=== PATIENT | male | born 1945 | race Caucasian/White ===

== ENCOUNTER 2021-08-13 08:15 | Inpatient (IN) | payer MEDICARE, SELFPAY ==
[2021-08-13] VITALS (20 sets, daily range): BP systolic 82–132; BP diastolic 39–92; PULSE 66–93; RESP 13–26; TEMP 36.6–37.1; O2SAT 87–96; BMI 27.0
--- NOTE | ~2021-08-13 | XR_ITS ---
XR hand RT min 3V DATE: 08/13/2021 09:04 INDICATION: Right hand and fourth finger injury after fall TECHNIQUE: 3 views COMPARISON: None FINDINGS: There is posteromedial dislocation at the proximal interphalangeal joint of the fourth digi t. No other fracture or dislocation is evident. There is osteophytic change at the triscaphe and first carpometacarpal and first through third metaca rpophalangeal and multiple interphalangeal joints. IMPRESSION: Posteromedial dislocation at proximal interphalangeal joint of fourth digit Polyarticular osteoarthritis Reviewed, dictated and finalized at location A. IMPRESSION: Posteromedial dislocation at proximal interphalangeal joint of four th digit Polyarticular osteoarthritis
--- NOTE | ~2021-08-13 | CT_ITS ---
EXAMINATION: CT brain wo con DATE: 08/13/2021 09:08 INDICATION: Syncope. Fall. TECHNIQUE: Computed tomography (CT) of the head was performed without intravenous contrast. The mA wa s adjusted according to patient size. Iterative reconstruction technique was employed. Exam dose: 68 1.00 mGy-cm total exam DLP. COMPARISON: None FINDINGS: No intracranial mass lesion or hemorrhage or cerebrovascular accident. No midline shift or mass effect. Bilateral carotid siphon internal carotid artery calcifications. There is nonspecific diminished atte nuation of the cerebral white matter, likely due to chronic small vessel ischemic changes. No subdural or epidural hematoma is detected. 6 mm or polyp or mucous retention cyst of the left maxillary sinus. Patchy soft tissue thickening of the ethmoid air cells. Moderate opacification of the maxillary sinuses. Bilateral nasal antral window s. Mild mucoperiosteal thickening of the left sphenoid sinus and frontal sinuses. The mastoid air cells are normally developed and aerated. No fracture or bone destruction of the cranial vault.. IMPRESSION: Cerebral atherosclerosis and chronic small vessel ischemic changes of the cerebral white matter No acute intracranial finding Reviewed, dictated and finalized at Location A. Reviewed, dictated and finalized at location A.
--- NOTE | ~2021-08-13 | XR_ITS ---
XR chest 2V DATE: 08/13/2021 09:03 INDICATION: Syncope TECHNIQUE: PA and lateral views COMPARISON: None FINDINGS: Moderate hyperinflation. No pulmonary infiltrate or consolidation, pleural effusion or pulm onary vascular congestion or pneumothorax. Normal heart size. Mild aortic unfolding. Osteopenia. IMPRESSION: No active cardiopulmonary disease Reviewed, dictated and finalized at location A.
--- NOTE | ~2021-08-13 | US_ITS ---
US renal BI DATE: 08/14/2021 08:51 INDICATION: Acute renal insufficiency. Prostate cancer. TECHNIQUE: Real-time imaging of kidneys and urinary bladder COMPARISON: 11/06/2014 CT abdomen pelvis without and with IV contrast material FINDINGS: The right kidney measures approximately 10.9 cm length, left kidney 11.8 cm. Renal parenchy mal echogenicity appears within normal limits. No renal mass lesion or hydronephrosis is detected. Prostate enlargement. The urinary bladder is unremarkable. IMPRESSION: No renal mass lesion or hydronephrosis Prostate enlargement Reviewed, dictated and finalized at Location [facility]. Reviewed, dictated and finalized at location A.
--- NOTE | ~2021-08-13 | XR_ITS ---
XR hand RT min 3V DATE: 08/13/2021 09:51 INDICATION: Fourth finger dislocation; post reduction examination TECHNIQUE: 3 views COMPARISON: 08/13/2021 right hand FINDINGS: There is reduction of the posterior medial dislocation of the proximal interphalangeal join t of the fourth digit. No associated fracture. Polyarticular osteoarthritis. IMPRESSION: Reduction of dislocation at proximal interphalangeal joint of fourth digit Reviewed, dictated and finalized at location A. IMPRESSION: Reduction of dislocation at proximal interphalangeal joint of fourt h digit
--- NOTE | 2021-08-13 08:29 | ECG_ITS ---
Measurements Intervals [place] Rate: 80 P: 17 KS: 160 QRS: -6 QRSD: 104 T: 29 QT: 365 QTc: 423 Interpretive Statements SINUS RHYTHM DELAYED PRECORDIAL R/S TRANSITION BORDERLINE T WAVE ABNORMALITY- INFERIOR LEADS BORDERLINE ECG Electronically Signed On 08-13-2021 15:02:26 CDT by Jose Quarles D.O.
--- NOTE | 2021-08-13 08:44 | ED.SYNCOPE ---
HPI - Syncope General Chief Complaint: Syncope Stated Complaint: dislocated finger Time Seen by Provider: 08/13/21 08:25 History of Present Illness HPI narrative: pt here passed out last night 35 then again today injured right ring finger on first loc no [place]/cp/sob/nv//d/f/uri/urine chagnes/abd pain/other neuro chagnes and no change in bp meds no heat exposure/sick contacts says diarrhea this am afte eating watermelon-h/o this but not prior. pt says no head neck or back or other injury no [place]/vision changes Related Data Home Medications Medication Instructions Recorded Confirmed triamcinolone acetonide 55 mcg 1 spray NASAL . b.i.d. ml 12/10/19 02/08/21 nasal spray aerosol sulfamethoxazole-trimethoprim 1 tablet PO Q12H 08/13/21 [Bactrim DS] tamsulosin [Flomax] 0.4 mg PO DAILY 08/13/21 Allergies Allergy/AdvReac Type Severity Reaction Status Date / Time No Known Allergies Allergy Mild Verified 08/13/21 08:37 Review of Systems Review of Systems: CONSTITUTIONAL: Denies fever, chills, or sweats. EYES: Denies visual changes, redness, or discharge. ENT: Denies rhinorrhea, congestion, sore throat, or otalgia. CARDIOVASCULAR: Denies chest pain, palpitations, or edema. RESPIRATORY: Denies cough or dyspnea. GASTROINTESTINAL: Denies abdominal pain, nausea, vomiting, has had diarreha just today GENITOURINARY: Denies dysuria or hematuria. SKIN: Denies rash or itching. MUSCULOSKELETAL: Denies back pain, joint pain, or myalgia. has right ring finger injury NEUROLOGIC: Denies headache, numbness, or weakness. passed out 2x PSYCHIATRIC: Denies anxiety or depression. [facility] Past Medical History Medical History (Updated 08/13/21 @ 09:47 by Demetrice Ardon MD) Abnormal fasting glucose BMI 27.0-27.9,adult BMI 28.0-28.9,adult Body mass index (bmi) 25.0-25.9, adult (12/17/18) Elevated PSA Encounter for hepatitis C screening test for low risk patient Loss, sense of, smell Microscopic hematuria Tinnitus Viral URI Family History Family History (Updated 11/28/18 @ 15:59 by DOCTOR UNKNOWN) Grandparent Family history of tuberculosis, Onset Age: 55 Family history of malignant neoplasm, Onset Age: 59 Family history of emphysema, Onset Age: 60 Father Malignant neoplasm of prostate, Onset Age: 56 Social History Social History Years smoked: 2 Smoking status: Never smoker Smoking end date: 04/02/10 Alcohol intake: current Alcohol use details: beer occasionally Exam Narrative: APPEARANCE: Well appearing, no pain in distress, well-nourished. Head normocephalic atraumtaic. EYES: PERRLA/EOMI, conjunctivae very clear. NOSE: Normal no drainage EARS:TMS clear [place] Back, with good light reflex. THROAT: Pharynx clear, no exudate. NECK: Supple. No adenopathy, no masses. RESPIRATORY: Airway patent, repsirations nonlabored. Clear to auscultation bilaterally, no rales, rhonchi, wheezing. CARDIOVASCULAR: Regular rate and rhythm without murmurs rubs or gallops. ABDOMINAL: Soft, nontender, nondistended, no hepatosplenomegally MUSCULOSKELETAl: Moves all extremities. Strenght/ROM intact, No edema, No calf tenderness. deformity right ring pip joint otherwise wnl NEURO: Alert. Cranial nerves II through XII intact. Good gait. Good coordination NIH 0 SKIN:: Warm, dry. Normal Color PSYCHIATRIC: Normal affect/mood, normal interaction with parents. Course Course Emergency Course: pt is dehydrated adn triggering sepsis no real source will cover ? just stress response wiht dehydration/syncope will plan to admit will discuss with pt Reevaluation(s) Reevaluation #1: informed pt of results at 0930 adn now just tells me on bactrim from his urologist for urine symptoms for the last week so likely the source Consultations Consultation #1: called hospitalist for admission at 0941 Dr Zamudio will admit Vital Signs Vital signs: Vital Signs Temperature 36.7 C 05
[2021-08-13 08:57] LABS: Eosinophils Percent Auto 0.2 % (0-4.4); Hematocrit 41.1 % (42.0-52.0); Hemoglobin 13.5 g/dL (14.0-18.0); Immature Granulocyte Absolute 0.02 K/mm3 (0.00-0.031); Immature Granulocyte Percent A 0.5 % (0-0.5); Lymphocytes Absolute Auto 0.53 K/mm3 (0.9-3.2); Lymphocytes Percent Auto 12.8 % (18.3-44.2); Mean Corpuscular HGB Conc 32.8 g/dl (32-36); Mean Corpuscular Hemoglobin 29.8 pg (26-34); Mean Corpuscular Volume 90.7 fl (80-100); Mean Platelet Volume 8.6 fl (7.4-10.4); Monocytes Absolute Auto 0.3 K/mm3 (0.1-0.6); Neutrophils Absolute Auto 3.2 K/mm3 (1.3-6.7); Neutrophils Percent Auto 78.5 % (45.5-73.1); Platelet Count Result 202 k/mm3 (150-375); Red Blood Count 4.53 M/mm3 (4.6-6.20); Red Cell Distribution Width 12.8 % (11.5-14.5); White Blood Count 4.1 K/mm3 (4.5-10.0)
[2021-08-13 09:09] LABS: INR 1.1
[2021-08-13 09:18] LABS: Lactic Acid Reflex 2.6 mmol/L (0.7-2.0)
[2021-08-13 09:20] LABS: Alanine Aminotransferase 57 U/L (6-50); Albumin Level 4.4 g/dL (3.5-5.1); Alkaline Phosphatase 65 U/L (38-126); Anion Gap 13 mmol/L (8-16); Aspartate Amino Transferase 62 U/L (17-59); Bilirubin,Total 0.5 mg/dL (0.2-1.3); Blood Urea Nitrogen 22 mg/dL (9-20); CRP 2.5 mg/dL (<1.0); Calcium 8.5 mg/dL (8.4-10.2); Carbon Dioxide 18 mmol/L (22-30); Chloride 97 mmol/L (98-107); Estimated CRCL calculation 35 ml/min; Estimated Glomerular Filt Rate 39; Glucose 139 mg/dL (65-110); Potassium 4.4 mmol/L (3.4-5.0); Sodium 128 mmol/L (137-145)
[2021-08-13 11:15] LABS: Add Urine Microscopic? YES; Appearance Urine Clear (Clear); Bilirubin Urine Negative (Negative); Blood Urine Trace-lysed (Negative); Color Urine Yellow (Yellow); Glucose Urine UA Negative (Negative); Ketones Urine Negative (Negative); Leukocyte Esterase Ur Negative LEU/UL (Negative); Nitrate Urine Positive (Negative); Protein Urine Negative (Negative); Urobilinogen Urine 0.2 mg/dL (<2.0); pH Urine 5.5 (5.0-9.0)
[2021-08-13 11:19] LABS: Bacteria Urine Trace /hpf; Mucus Urine Rare /lpf; RBC Urine 0-2 /hpf (0-2); Squamous Epithelial Cell Urine Rare /hpf (Few); WBC Urine 0-3 /hpf
[2021-08-13 11:53] LABS: Reflex Lactic Acid Yes or No Add Lactic
--- NOTE | 2021-08-13 12:00 | ADMGEN ---
This patient, Les Doe, was admitted to Medical Room 250-01. Patient/family oriented to hospital policies and general routines including ID bracelet, bed and alarms, visiting hours, pain management, procedures, bathroom and other care routines, personal items, smoking policy, room service/diet, and visiting hours. Information on how to activate the Rapid Response Team has been discussed. Patient/Family are encouraged to report perceived risks to care and to ask questions if they do not understand what they are told or what they should do.
[2021-08-13 12:52] LABS: Lactic Acid 0.7 mmol/L (0.7-2.0)
--- NOTE | 2021-08-13 14:00 | PM.IMHP ---
H&P: HPI History of Present Illness Date/Time: 08/13/21 14:00 Chief Complaint: Syncope. Narrative: This is a very pleasant 75-year-old male with prostate cancer, benign prostatic hyperplasia, and hypertension who presented to the emergency department for evaluation after a syncopal episode. He started radiation for his prostate cancer approximately 3 weeks ago and since that time he has gotten progressively more weak. His appetite has also been poor for a couple of weeks and he was started on Bactrim about 10 days ago for urinary tract infection, with improvement in his symptoms. Last evening while walking out of the bathroom she began to feel extremely weak and he reports that he ?crumpled to the floor? with a brief loss of consciousness. He had jammed his right 4th finger on the floor when he fell and that was found to be dislocated today, reduced in the ER. It took the patient and his quite some time to get him off of the floor because he was so weak though he had no issues going to bed. This morning while walking into the bathroom he once again started to feel very weak and he reports that ?I was bouncing all over the bathroom? trying to keep himself upright before gently falling to the ground. Pertinent labs done on arrival to the ER include sodium of 128, potassium 4.4, chloride 97, carbon dioxide 18, BUN 22, creatinine 1.70, glucose 139, lactic acid 2.6, total CK 194. With 2 L of saline, his BUN and creatinine normalized and his sodium and chloride are improving as well as his serum bicarb. Lactic acid has also normalized. Due to continued orthostatic hypotension, he is being admitted for close monitoring and further hydration. He denies fever, chills, sweats, head injury, chest pain, pleuritic pain, shortness breast, vomiting, and diarrhea. Review of Systems Review of Systems: Twelve systems were reviewed. Occasional hot flashes. No fever. No cold or flu symptoms. No sick contacts. No history of cardiac disease or cardiac dysrhythmia. Except as documented, all other systems were reviewed and are negative. [facility] Past Medical History Medical History (Updated 08/14/21 @ 00:03 by Bonnie Glaser PA-C) Abnormal fasting glucose Benign prostatic hyperplasia Colon cancer screening (12/2018) Cologuard negative. Essential (primary) hypertension Mixed hyperlipidemia Prostate cancer (03/2021) Seasonal allergic rhinitis Surgical History Surgical History (Updated 08/13/21 @ 23:34 by Bonnie Glaser PA-C) History of colonoscopy (07/2005) Diverticulosis and internal hemorrhoids. History of hernia repair (1988) History of prostate biopsy (03/14/21) Family History Family History Grandparent Family history of malignant neoplasm, Onset Age: 59 Family history of emphysema, Onset Age: 60 Family history of tuberculosis, Onset Age: 55 Father Malignant neoplasm of prostate, Onset Age: 56 Sibling Malignant neoplasm of prostate Social History Social History (Updated 08/14/21 @ 00:10 by Bonnie Glaser PA-C) Social History: Surrogate decision maker: Nyasia Doe, . Code status: Full code. Smoking status: Former smoker Tobacco type: cigarettes Alcohol intake: current Alcohol use details: Occasional beer in moderation. Substance use: never Substance use type: does not use Living arrangements: with family Additional occupation/education comments: The patient owns his own business. Spiritual care concerns: No Meds Home Medications and Allergies Home Medications Medication Instructions Recorded Confirmed Type atorvastatin 20 mg tablet 20 mg PO DAILY #90 tablet 12/16/20 08/13/21 Rx amlodipine 5 mg tablet 5 mg PO DAILY #90 tablet 02/08/21 08/13/21 Rx lisinopril 20 mg tablet 20 mg PO DAILY #90 tablet 02/08/21 08/13/21 Rx sulfamethoxazole-trimethoprim 1 tablet PO Q12H 08/13/21 08/13/21 History [Bactrim DS]
[2021-08-13 16:20] LABS: Anion Gap 7 mmol/L (8-16); Blood Urea Nitrogen 19 mg/dL (9-20); Calcium 8.2 mg/dL (8.4-10.2); Carbon Dioxide 21 mmol/L (22-30); Chloride 101 mmol/L (98-107); Creatine Kinase 194 U/L (55-170); Estimated CRCL calculation 49 ml/min; Estimated Glomerular Filt Rate 59; Glucose 101 mg/dL (65-110); Magnesium 2.1 mg/dL (1.6-2.3); Potassium 4.2 mmol/L (3.4-5.0); Sodium 129 mmol/L (137-145)
[2021-08-13 17:21] LABS: Creatinine Urine 75.4 mg/dL
[2021-08-13 17:27] LABS: Sodium Urine Random 64 meq/L
[2021-08-13 21:16] LABS: Eosinophil Urine None Seen % (None Seen)
[2021-08-13] MEDS: SODIUM CHLORIDE 0.9% IV 1,000 ML 100 ML IV CONT (23:55)
[2021-08-14] VITALS (13 sets, daily range): BP systolic 93–129; BP diastolic 59–76; PULSE 63–87; RESP 12–16; TEMP 36.2–37.4; O2SAT 91–98
[2021-08-14 06:29] LABS: Hematocrit 38.1 % (42.0-52.0); Hemoglobin 12.4 g/dL (14.0-18.0); Mean Corpuscular HGB Conc 32.5 g/dl (32-36); Mean Corpuscular Hemoglobin 29.7 pg (26-34); Mean Corpuscular Volume 91.1 fl (80-100); Mean Platelet Volume 8.9 fl (7.4-10.4); Platelet Count Result 190 k/mm3 (150-375); Red Blood Count 4.18 M/mm3 (4.6-6.20); Red Cell Distribution Width 12.8 % (11.5-14.5); White Blood Count 2.4 K/mm3 (4.5-10.0)
[2021-08-14 06:50] LABS: Alanine Aminotransferase 61 U/L (6-50); Albumin Level 3.4 g/dL (3.5-5.1); Alkaline Phosphatase 58 U/L (38-126); Anion Gap 7 mmol/L (8-16); Aspartate Amino Transferase 60 U/L (17-59); Bilirubin,Total 0.3 mg/dL (0.2-1.3); Blood Urea Nitrogen 15 mg/dL (9-20); Calcium 8.1 mg/dL (8.4-10.2); Carbon Dioxide 21 mmol/L (22-30); Chloride 102 mmol/L (98-107); Estimated CRCL calculation 64 ml/min; Estimated Glomerular Filt Rate > 60; Glucose 96 mg/dL (65-110); Sodium 130 mmol/L (137-145)
[2021-08-14] MEDS: TAMSULOSIN HCL 0.4 MG CAPSULE PO (07:51)
[2021-08-14] MEDS: SODIUM CHLORIDE 0.9% IV 1,000 ML 100 ML IV CONT ×2 (09:11→18:34)
--- NOTE | 2021-08-14 12:49 | PM.IMPN ---
Progress Note: A&P Assessment and Plan (1) Syncope: Qualifiers: Syncope type: vasovagal syncope Qualified Code(s): R55 - Syncope and collapse Code(s): R55 - Syncope and collapse Status: Acute Assessment and Plan: Secondary to dehydration and orthostatic hypotension. Cardiac dysrhythmia less likely but will monitor on telemetry overnight. - 08/14/21: Pt. has been orthostatic. Still being rehydrated at this time. Otherwise BP's have remained stable as has pulse. Will continue to monitor VS and labs. PT and OT to evaluate (2) Closed dislocation of right ring finger: Code(s): S63.254A - Unspecified dislocation of right ring finger, initial encounter Status: Acute Assessment and Plan: Status post reduction in the emergency department. Finger splint in place. - 08/14/21: Treat pain as needed. Keep finger splinted. (3) Acute kidney injury: Code(s): N17.9 - Acute kidney failure, unspecified Status: Resolved Assessment and Plan: Likely due to dehydration from poor oral intake. Creatinine has already normalized with IV fluid rehydration. - 08/14/21: Resolved with creatinine of 0.90 and BUN of 15. (4) Elevated LFTs: Code(s): R79.89 - Other specified abnormal findings of blood chemistry Status: Acute Assessment and Plan: Mild AST and ALT elevation of unclear significance. Abdominal exam is benign. Hold atorvastatin for now. - 08/14/21: Transaminases remain slightly elevated. Suspect it from dehydration? Will continue to hold statin and will continue to monitor. Bilirubin is normal. (5) Essential (primary) hypertension: Code(s): I10 - Essential (primary) hypertension Status: Acute Assessment and Plan: Antihypertensives on hold given syncope and orthostatic hypotension. - 08/14/21: Continuing to hold BP meds in light of still being orthostatic. He will be re-evaluated tomorrow. (6) Benign prostatic hyperplasia: Code(s): N40.0 - Benign prostatic hyperplasia without lower urinary tract symptoms Status: Acute Assessment and Plan: Continue tamsulosin. (7) Recent urinary tract infection: Code(s): Z87.440 - Personal history of urinary (tract) infections Status: Acute Assessment and Plan: Patient prescribed Bactrim DS on 08/03/2021 for total 14 days for UTI. UTI symptoms have improved significantly and drug will be continued. Doubt this is the cause of his acute kidney injury. - 08/14/21: Vancomycin discontinued this AM, and pt. is continued on Bactrim DS. Will follow up urine culture to resolution. Blood cultures x2 are preliminarily negative. (8) Orthostatic hypotension: Code(s): I95.1 - Orthostatic hypotension Status: Acute Assessment and Plan: 132/67 --> 105/74 --> 95/69. Continue IV fluid rehydration. Initiate fall precautions. Monitor orthostatic vital signs Q shift. - 08/14/21: Pt. currently remains orthostatic and has changes in BP and pulse with change of position. We will continue to hydrate overnight and re-evaluate in the AM as pt. feels that he is improving overall. (9) Hyponatremia: Code(s): E87.1 - Hypo-osmolality and hyponatremia Status: Acute Assessment and Plan: - Now trending up, 128-->130. - Will recheck in the AM. Time Spent With Patient Time with patient: 15 - 25 minutes Subjective Date/time seen: 08/14/21 0920 This pt. was examined at the bedside today in interval assessment after the pt. was admitted for weakness, dehydration and acute hyponatremia after starting Radiation for his prostate Cancer. He is being re-hydrated at this time. He has no new complaints such as CP, Dyspnea, N/V/D. His sodium is increasing, however, the pt. still remains hyponatremic. His lactic acid returned to normal, so Vancomycin was discontinued and the patient was continued on Bactrim DS. CT of head was negative. ECHO is still pending and Renal US
[2021-08-15] VITALS (7 sets, daily range): BP systolic 115–130; BP diastolic 68–77; PULSE 63–70; RESP 14–16; TEMP 36.3–36.7; O2SAT 93–95
[2021-08-15] MEDS: SODIUM CHLORIDE 0.9% IV 1,000 ML 100 ML IV CONT (04:58)
[2021-08-15 05:45] LABS: Basophils Percent Auto 0.4 % (0.2-1.2); Eosinophils Absolute Auto 0.2 K/mm3 (0-0.3); Eosinophils Percent Auto 7.7 % (0-4.4); Hematocrit 40.1 % (42.0-52.0); Immature Granulocyte Absolute 0.01 K/mm3 (0.00-0.031); Immature Granulocyte Percent A 0.4 % (0-0.5); Lymphocytes Absolute Auto 0.39 K/mm3 (0.9-3.2); Lymphocytes Percent Auto 13.7 % (18.3-44.2); Mean Corpuscular HGB Conc 32.4 g/dl (32-36); Mean Corpuscular Hemoglobin 29.3 pg (26-34); Mean Corpuscular Volume 90.5 fl (80-100); Mean Platelet Volume 8.6 fl (7.4-10.4); Monocytes Absolute Auto 0.3 K/mm3 (0.1-0.6); Monocytes Percent Auto 11.2 % (2.6-8.5); Neutrophils Absolute Auto 1.9 K/mm3 (1.3-6.7); Neutrophils Percent Auto 66.6 % (45.5-73.1); Platelet Count Result 204 k/mm3 (150-375); Red Blood Count 4.43 M/mm3 (4.6-6.20); Red Cell Distribution Width 12.7 % (11.5-14.5); White Blood Count 2.9 K/mm3 (4.5-10.0)
[2021-08-15 06:07] LABS: Alanine Aminotransferase 75 U/L (6-50); Albumin Level 3.7 g/dL (3.5-5.1); Alkaline Phosphatase 62 U/L (38-126); Anion Gap 8 mmol/L (8-16); Aspartate Amino Transferase 63 U/L (17-59); Bilirubin,Total 0.4 mg/dL (0.2-1.3); Blood Urea Nitrogen 13 mg/dL (9-20); Calcium 8.3 mg/dL (8.4-10.2); Carbon Dioxide 21 mmol/L (22-30); Chloride 102 mmol/L (98-107); Estimated CRCL calculation 72 ml/min; Estimated Glomerular Filt Rate > 60; Glucose 97 mg/dL (65-110); Magnesium 1.9 mg/dL (1.6-2.3); Potassium 3.9 mmol/L (3.4-5.0); Sodium 131 mmol/L (137-145)
[2021-08-15] MEDS: TAMSULOSIN HCL 0.4 MG CAPSULE PO (08:59)
--- NOTE | 2021-08-15 10:13 | PM.DS ---
DS: Admitting Diagnosis Discharge Date 08/15/21 Admitting Diagnosis Syncope Orthostatic Hypotension Closed dislocation of right ring finger REJI Transaminitis HTN BPH Recent UTI DS: Discharge Diagnosis Discharge Diagnosis (1) Syncope: Qualifiers: Syncope type: vasovagal syncope Qualified Code(s): R55 - Syncope and collapse Code(s): R55 - Syncope and collapse Status: Acute Assessment and Plan: Secondary to dehydration and orthostatic hypotension. Cardiac dysrhythmia less likely but will monitor on telemetry overnight. - 08/14/21: Pt. has been orthostatic. Still being rehydrated at this time. Otherwise BP's have remained stable as has pulse. Will continue to monitor VS and labs. PT and OT to evaluate - 08/15/21, Date of discharge: No further issues, now resolved. Etiology was likely secondary to Orthostasis as the pt. did have Orthostatic Vital Signs. Pt. is up and moving around without difficulty or symptoms. Specifically he is not dizzy and he does not have any headaches. He is stable for discharge today after having been rehydrated. Pt. is encouraged to drink a MINIMUM of 64 ounces of water at home to maintain hydration. (2) Closed dislocation of right ring finger: Code(s): S63.254A - Unspecified dislocation of right ring finger, initial encounter Status: Acute Assessment and Plan: Status post reduction in the emergency department. Finger splint in place. - 08/14/21: Treat pain as needed. Keep finger splinted. - 08/15/21, Date of discharge: Pt. will be advised to follow up with his PCP upon discharge today. No further need for Orthopedics at this time. (3) Acute kidney injury: Code(s): N17.9 - Acute kidney failure, unspecified Status: Resolved Assessment and Plan: Likely due to dehydration from poor oral intake. Creatinine has already normalized with IV fluid rehydration. - 08/14/21: Resolved with creatinine of 0.90 and BUN of 15. - 08/15/21: Resolved. Creatinine on discharge is 0.80 and BUN is 13. Renal US was only significant for enlarged Prostate. (4) Elevated LFTs: Code(s): R79.89 - Other specified abnormal findings of blood chemistry Status: Acute Assessment and Plan: Mild AST and ALT elevation of unclear significance. Abdominal exam is benign. Hold atorvastatin for now. - 08/14/21: Transaminases remain slightly elevated. Suspect it from dehydration? Will continue to hold statin and will continue to monitor. Bilirubin is normal. - 08/15/21: Transaminases today still remain slightly elevated without any known causation. We will have him hold his statin on discharge as well as follow up with his PCP for further outpatient evaluation as this was an incidental finding and pt. is not symptomatic of any biliary colic or complaint. Bilirubin remains normal. He is eating and tolerating solid food well without complaint. Will recheck a CMP in three days post discharge. (5) Essential (primary) hypertension: Code(s): I10 - Essential (primary) hypertension Status: Acute Assessment and Plan: Antihypertensives on hold given syncope and orthostatic hypotension. - 08/14/21: Continuing to hold BP meds in light of still being orthostatic. He will be re-evaluated tomorrow. - 08/15/21: Pt's Amlodipine and Lisinopril were held while he was here. His Maximum BP has been 129/68 with the majority of his average pressures running 90s-1-teens/60s. We will hold Lisinopril and Amlodipine until he follows up with his PCP as these may have contributed to the lower blood pressures he was running when he came to the ER. Pt. encouraged to keep a diary of blood pressures to take with him to PCP on his follow up appointment. (6) Benign prostatic hyperplasia: Code(s): N40.0 - Benign prostatic hyperplasia without lower urinary tract symptoms Status: Acute Assessment and Plan: - Continue tamsulosin. - 08/15/21, Date of discharge: Manoj
[2021-08-17 13:44] LABS: Osmolality, Urine 353 mOsm/kg (50-1200)
== END 2021-08-15 12:20 | disposition home or self-care (01) | DRG 312 ==
LOC: ANHED 09:56 → ANH2MED 10:45
PROVIDERS: Physician Assistant; Admitting Provider Family Medicine; Emergency Provider Emergency Medicine; PCP Family Medicine; Visit Provider Nurse Practitioner Adult Health
DX: I95.1 Orthostatic hypotension (principal); N17.9 Acute kidney failure, unspecified; E87.1 Hypo-osmolality and hyponatremia; S63.254A Unspecified dislocation of right ring finger, initial encounter; N40.0 Benign prostatic hyperplasia without lower urinary tract symptoms; I10 Essential (primary) hypertension; E86.0 Dehydration; C61 Malignant neoplasm of prostate; E78.2 Mixed hyperlipidemia; W19.XXXA Unspecified fall, initial encounter; Z87.891 Personal history of nicotine dependence
CPT/HCPCS: 26770; 36415; 70450; 71046; 73130; 76775; 80048; 80053; 81001; 82550; 82570; 83605; 83735; 83930; 83935; 84300; 85025; 85027; 85610; 85730; 85999; 86140; 87040; 87086; 93005; 99285; A9270; J0692; J3370; J7030

== ENCOUNTER → 2022-07-24 11:10 | Outpatient (CLI) | payer MEDICARE, SELFPAY ==
--- NOTE | ~2022-07-24 | XR_ITS ---
EXAM: XR hand BI arthritis min 3V DATE: 07/24/2022 11:34 HISTORY: M19.041 - Primary osteoarthritis, right hand . COMPARISON: X-ray right hand 08/13/2021. FINDINGS: Decreased mineralization. No fracture or dislocation. No lytic or blastic lesion. Scattere d moderate-severe osteoarthritic changes involving the bilateral DIP and PIP joints, bilateral thumb interphalangeal joints, right first through third PIP joints, bilateral trapeziometacarpal joints, an d bilateral triscaphe joints, most severe in the left second DIP joint and bilateral triscaphe and tr apeziometacarpal joints. Hooklike osteophyte at the right third metacarpal head. No erosion or perios teal change. Soft tissues within normal limits. IMPRESSION: Polyarticular osteoarthritis of the bilateral hands. Reviewed, dictated and finalized at location K.
== END ==
PROVIDERS: PCP Family Medicine; Visit Provider Family Medicine
DX: M19.041 Primary osteoarthritis, right hand (principal); M19.042 Primary osteoarthritis, left hand
CPT/HCPCS: 73130